=== PATIENT | male | born 1965 | race African-American/Black ===

== ENCOUNTER 2020-03-29 10:39 | Emergency (ER) | payer OTHER ==
[~2020-03-29] VITALS: Ht 182.9 cm; Wt 84.4 kg
[2020-03-29 10:57] VITALS: Ht 182.9 cm; Wt 84.4 kg
[2020-03-29 11:56] VITALS: BP 158/110
== END 2020-03-29 11:56 | disposition home or self-care (01) ==
LOC: ED 10:39
DX: S46.912A Strain of unspecified muscle, fascia and tendon at shoulder and upper arm level, left arm, initial encounter (principal); M54.42 Lumbago with sciatica, left side; I10 Essential (primary) hypertension; F17.210 Nicotine dependence, cigarettes, uncomplicated; W20.8XXA Other cause of strike by thrown, projected or falling object, initial encounter; Y93.89 Activity, other specified; Y92.89 Other specified places as the place of occurrence of the external cause; Y99.8 Other external cause status
CPT/HCPCS: 99406